=== PATIENT | female | born 1955 | race Caucasian/White ===

== ENCOUNTER 2017-07-02 07:54 | Outpatient (CLI) | payer BC ==
[2014-05-05 13:51] VITALS: BP 129/72
== END 2017-07-02 07:55 ==
LOC: LAB 07:54
PROVIDERS: ATTEND Family Medicine
DX: E03.9 Hypothyroidism, unspecified (principal)
CPT/HCPCS: 36415; 84443

== ENCOUNTER 2018-08-16 10:17 | Outpatient (CLI) | payer BC ==
[2014-05-05 13:51] VITALS: BP 129/72
[2018-08-16 10:55] LABS: BASOPHILS % 0.9 (0.0-1.5); EOSINOPHILS % 3.6 % (0.0-6.8); MEAN CORPUSCULAR HEMOGLOBIN 31.4 pg (28.0-34.0); NEUTROPHILS # 2.9 # k/uL (1.4-7.7)
[2018-08-16 11:15] LABS: eGFR (Non-African) > 60
== END 2018-08-16 10:19 ==
LOC: LAB 10:17
PROVIDERS: ATTEND Family Medicine
DX: E78.2 Mixed hyperlipidemia (principal); E03.9 Hypothyroidism, unspecified
CPT/HCPCS: 36415; 80053; 80061; 84439; 84443; 85025